=== PATIENT | female | born 1995 | race Hispanic/Latino ===

== ENCOUNTER 2017-09-19 00:04 | Emergency (ER) | payer SELFPAY | END 2017-09-19 01:11 | disposition home or self-care (01) | LOC: ERS 00:04 | DX: B08.5 Enteroviral vesicular pharyngitis (principal); F17.210 Nicotine dependence, cigarettes, uncomplicated | CPT/HCPCS: 87081; 87430; 99283 ==

== ENCOUNTER 2017-12-13 12:55 | Emergency (ER) | payer SELFPAY ==
[2017-12-13 13:44] LABS: #Eosinphils 0.1 thou/uL (0.0-0.7); #Lymphocytes 2.3 thou/uL (1.20-3.40); #Monocytes 0.5 thou/uL (0.11-0.59); #Neutrophils 5.9 thou/uL (1.40-6.50); %Basophils 0.6 % (0.0-1.0); %Lymphocytes 25.8 % (21.0-51.0); %Monocytes 5.7 % (0.0-10.0); %Neutrophils 66.9 % (42.0-75.0); Hemoglobin 11.8 g/dL (12.0-16.0); Mean Corpuscular HGB CONC 32.6 g/dL (32.0-36.0); Mean Corpuscular Hemoglobin 25.2 pg (27.0-31.0); Mean Corpuscular Volume 77.4 fL (78.0-98.0); Mean Platelet Volume 8.4 fL (7.4-10.4); Platelet Count 301 thou/uL (130-400); Red Blood Cell (RBC) Count 4.69 mill/uL (4.20-5.40); White Blood Cell (WBC) Count 8.9 thou/uL (4.8-10.8)
[2017-12-13 14:07] LABS: ALT (SGPT) 18 U/L (8-55); AST (SGOT) 12 U/L (5-34); Albumin 4.5 g/dL (3.5-5.0); Alkaline Phosphatase 74 U/L (40-150); Anion Gap 13 mmol/L (10-20); BUN (Urea Nitrogen) 10 mg/dL (7.0-18.7); Bilirubin, Total 0.3 mg/dL (0.2-1.2); Calc. Creatinine Clearance 0 mL/min (70-130); Calcium 9.7 mg/dL (7.8-10.44); Carbon Dioxide 24 mmol/L (22-29); Chloride 104 mmol/L (98-107); Estimated GFR-MDRD Greater than 90; Glucose 112 mg/dL (70-105); Potassium 3.8 mmol/L (3.5-5.1); Protein, Total 7.5 g/dL (6.0-8.3); Sodium 137 mmol/L (136-145)
[2017-12-13 14:39] LABS: Bilirubin Negative (Negative); Blood, Urine Negative (Negative); Clarity CLEAR (Clear); Glucose, Urine (Dipstick) Negative (Negative); Leukocyte Negative (Negative); Nitrite Negative (Negative); Protein, Urine (Dipstick) Negative (Neg-Trace); Specific Gravity, Urine 1.023 (1.002-1.036); Urobilinogen 0.2 mg/dL (0.2-1.0)
--- NOTE | 2017-12-13 16:11 | ULT ---
PELVIC ULTRASOUND WITH DOPPLER (TRANSABDOMINAL AND TRANSVAGINAL, GRAYSCALE, COLOR FLOW AND SPECTRAL DOPPLER IMAGING): History: Right acute abdominal pain. Positive urine test. FINDINGS: The uterus measures 6.2 x 3.9 x 5.1 cm without mass. The endometrium measures 9 mm in thickness. Ther e is fluid in the endometrial cavity. The right ovary measures 2.2 x 1.9 x 2.3 cm and the left ovary measures 3.8 x 4.6 x 3.5 cm. A 3.8 x 3 .2 x 2.6 cm left ovarian cyst is seen. Flow is demonstrated to both ovaries. No gestational sac is id entified. IMPRESSION: 1. No evidence of intrauterine gestation. 2. 3.8 cm left ovarian cyst. 3. Fluid in the endometrial canal. 4. Correlation with Beta HCG and follow up pelvic ultrasound is recommended. POS: JOSSELINE
== END 2017-12-13 15:42 | disposition home or self-care (01) ==
LOC: ERS 12:55
DX: O20.0 Threatened abortion (principal); O99.331 Smoking (tobacco) complicating pregnancy, first trimester; F17.210 Nicotine dependence, cigarettes, uncomplicated; Z3A.01 Less than 8 weeks gestation of pregnancy
CPT/HCPCS: 36415; 76856; 80053; 81003; 84702; 85025; 86900; 86901

== ENCOUNTER 2018-01-02 20:42 | Emergency (ER) | payer SELFPAY ==
[2018-01-02 21:38] LABS: #Eosinphils 0.2 thou/uL (0.0-0.7); #Lymphocytes 2.7 thou/uL (1.20-3.40); #Monocytes 0.7 thou/uL (0.11-0.59); #Neutrophils 5.8 thou/uL (1.40-6.50); %Basophils 0.4 % (0.0-1.0); %Eosinophils 1.7 % (0.0-10.0); %Lymphocytes 28.6 % (21.0-51.0); %Neutrophils 62.3 % (42.0-75.0); Hemoglobin 11.7 g/dL (12.0-16.0); Mean Corpuscular HGB CONC 34.3 g/dL (32.0-36.0); Mean Corpuscular Hemoglobin 26.5 pg (27.0-31.0); Mean Corpuscular Volume 77.1 fL (78.0-98.0); Mean Platelet Volume 8.4 fL (7.4-10.4); Platelet Count 279 thou/uL (130-400); RBC Distribution Width 13.6 % (11.5-14.5); Red Blood Cell (RBC) Count 4.43 mill/uL (4.20-5.40); White Blood Cell (WBC) Count 9.3 thou/uL (4.8-10.8)
[2018-01-02 21:56] LABS: ALT (SGPT) 24 U/L (8-55); AST (SGOT) 14 U/L (5-34); Albumin 4.5 g/dL (3.5-5.0); Alkaline Phosphatase 80 U/L (40-150); Anion Gap 11 mmol/L (10-20); BUN (Urea Nitrogen) 8 mg/dL (7.0-18.7); Bilirubin, Total 0.3 mg/dL (0.2-1.2); Calc. Creatinine Clearance 0 mL/min (70-130); Calcium 9.6 mg/dL (7.8-10.44); Carbon Dioxide 25 mmol/L (22-29); Chloride 106 mmol/L (98-107); Estimated GFR-MDRD Greater than 90; Globulin 3.5 g/dL (2.4-3.5); Glucose 116 mg/dL (70-105); Potassium 3.8 mmol/L (3.5-5.1); Sodium 138 mmol/L (136-145)
[2018-01-02 22:09] LABS: Bilirubin Small (Negative); Blood, Urine Large (Negative); Clarity CLOUDY (Clear); Glucose, Urine (Dipstick) Negative (Negative); Leukocyte Small (Negative); Nitrite Negative (Negative); Protein, Urine (Dipstick) 100 mg/dL (Neg-Trace); Specific Gravity, Urine 1.033 (1.002-1.036); Urobilinogen 0.2 mg/dL (0.2-1.0)
[2018-01-02 22:13] LABS: Bacteria/HPF None Seen HPF (None Seen); Hyaline Casts/LPF 7-10 HYALINE CAST LPF (0-3 Hyaline); Pathc Cast-AUWi Flag 1.93 (0-2.49); RBC/HPF GREATER THAN 50-TNTC HPF (0-3)
[2018-01-02] MEDS ORDERED: Acetaminophen 500 MG TAB ONE (23:22)
--- NOTE | 2018-01-03 02:11 | CON ---
DATE OF CONSULTATION: 01/03/2018 EVALUATING PHYSICIAN: Ata Tovar MD CHIEF COMPLAINT: Abdominal pain. HISTORY OF PRESENT ILLNESS: Ms. Knox is a 22-year-old , G3, P2 -0-0-2 with a suspected last menstrual period of 11/30/2017 who presents to the ER tonight with a second episode of abdominal pain. She has also had some associated vaginal bleeding. The patient was seen on 12/13/2017, at which time, she had a quantitative BHCG of 118 and an ultrasound that was only remarkable for a 3.8 cm left ovarian cyst. Her uterus was empty at that time. She returns tonight with again diffuse lower abdominal pain. She denies nausea , vomiting, fever, or chills. She continues to have a small amount of persistent spotting. PAST OBSTETRICAL HISTORY: Includes 2 vaginal deliveries at term. PAST MEDICAL HISTORY: Unremarkable. PAST SURGICAL HISTORY: Cholecystectomy. CURRENT MEDICATIONS: None. SOCIAL HISTORY: Denies tobacco, alcohol, or drug use. She denies a history of gonorrhea or chlamydia. FAMILY HISTORY: Denies female pelvic malignancy. REVIEW OF SYSTEMS: She denies nausea, vomiting, fever, or chills. PHYSICAL EXAMINATION: VITAL SIGNS: In the ER now are 124/79 with a pulse of 96. ABDOMEN: Soft and nontender without guarding or rebound. No heavy vaginal bleeding is seen. IMAGING: The ultrasound is reviewed with the ER doctor. Her uterus is once again seen to be empty. There is what appears to be a 3-cm complex mass adjacent to the right ovary, possibly consistent with an ectopic. There is no significant amount of free fluid. There is good flow to both ovaries. LABORATORY DATA: Laboratories tonight show a white count of 9.3, hemoglobin and hematocrit of 11.7 and 34.2, platelet count 279. Chemistry show a sodium of 138, a potassium of 3.8, a BUN of 8, a creatinine of 0.67, total bilirubin of 0.3, and AST and an ALT of 14 and 24 respectively. Her beta hCG tonight has risen to 370.54. ASSESSMENT: 1. Suspected ectopic . 2. No evidence of acute abdomen or hemodynamic instability. PLAN: Options were reviewed with the patient at this time to include surgery as well as medical treatment of ectopic with methotrexate. The risks and benefits of both alternatives were discussed in detail. The plan at this time will be to attempt medical treatment with methotrexate 50 mg/meter squared to be given as a single dose. I have given the dose verbally to the pharmacist. She understands that she is to return on day 4 and on day 7 for a repeat quantitative beta hCG evaluations. She also understands that she is to return should she experience severe lower abdominal pain, dizziness, or signs of bleeding. She understands all of the above, along with her , and wishes to proceed with medical management. CHARLENE
--- NOTE | 2018-01-03 10:28 | ULT ---
PRELIMINARY REPORT/[facility]/EMERGENTY AFTER-HOURS PROCEDURE US , Transvaginal US Duplex Arterial/Venous of the Pelvis, Complete CLINICAL HISTORY: 22 years old, female; Pain; Other: Pelvic pain, vag bleeding; Gestational age or lmp: 6wks; TECHNIQUE: Real-time transvaginal obstetrical ultrasound of the maternal pelvis and a first trimester with image documentation. Transvaginal imaging was used for better evaluation of the fetus and adnexa . Real-time duplex ultrasound scan of the pelvis integrating B-mode two-dimensional vascular structure, Doppler spectral analysis and color flow Doppler imaging. COMPARISON: No relevant prior studies available. FINDINGS: Transvaginal obstetrical ultrasound was performed. Duplex ultrasound scan with color Doppler flow and spectral waveform analysis was also performed for evaluation of pelvic and ovarian blood flow and to rsion. Gestation: There is no intrauterine gestational sac. There is a right paraovarian adnexal heterogeneo us hyperechoic mass measuring up to 2.5 cm, suspicious for ectopic . Uterus/cervix: Thickened endometrium. No myometrial mass. Right ovary: See above right paraovarian mass. Right ovary is otherwise unremarkable. Normal ovarian blood flow. No evidence of torsion. Left ovary: Left ovarian probable corpus luteum. Otherwise unremarkable. Normal ovarian blood flow. N o evidence of torsion. Free fluid: Mild cul-de-sac free fluid containing a focal echogenic area/blood clot. IMPRESSION: No intrauterine gestational sac visualized. Right adnexal mass is suspicious for ectopic ; r ecommend PATIENT BILLER consult. Findings described above. THIS REPORT CONTAINS FINDINGS THAT MAY BE CRITICAL TO PATIENT CARE. The findings were verbally commun icated via telephone conference with Dr Evangelista at 12:29 AM CDT on 01/03/2018. The findings were acknow ledged and understood. Thank you for allowing us to participate in the care of your patient. Dictated and Authenticated by: Yared Rain MD 01/03/2018 12:44 AM Central Time ([place] & [place]) FINAL REPORT EMERGENCY AFTER HOURS PELVIC ULTRASOUND: Date: 01/02/18 HISTORY: Vaginal bleeding. Positive test. FINDINGS: Real-time images of the pelvis were obtained endovaginally. These show the uterus to be 8.3 cm in fady gth. Endometrium is slightly thickened, but there are no signs of any intrauterine . The left ovary shows a dominant follicle measuring 1.2 x 1.5 cm. The right ovary shows several small follicles. Interposed between the right ovary and uterus is a heterogeneous density measuring 1.3 x 2 .4 cm, although I do not see any definite ectopic , this is suspicious. There is some trace free fluid present. DOPPLER EVALUATION WITH SPECTRAL ANALYSIS: Normal flow is shown to the adnexa. IMPRESSION: Right adnexal mass interposed between the uterus and ovary. Given patient's history and the lack of an intrauterine , even though an ectopic is not visualized, this would have to be viewed wit h suspicion for the possibility of an ectopic . Clinical correlation recommended. This report is in agreement with the preliminary report issued by [facility].
== END 2018-01-03 02:30 | disposition home or self-care (01) ==
LOC: ERS 20:42
DX: N93.9 Abnormal uterine and vaginal bleeding, unspecified (principal); Z87.891 Personal history of nicotine dependence
CPT/HCPCS: 36415; 76856; 80053; 81003; 81015; 84702; 85025; 86900; 86901; 87086; 96372; J9250

== ENCOUNTER 2018-01-10 14:52 | Emergency (ER) | payer SELFPAY | END 2018-01-10 16:39 | disposition home or self-care (01) | LOC: ERS 14:52 | DX: Z00.00 Encounter for general adult medical examination without abnormal findings (principal) | CPT/HCPCS: 36415; 84702; 99282 ==

== ENCOUNTER 2018-09-21 09:46 | Outpatient (CLI) | payer OTHER ==
--- NOTE | 2018-09-21 11:01 | ULT ---
Ultrasound obstetrical complete: DATE: 09/21/2018 HISTORY: 23-year-old female, "encounter for supervision of otherwise normal in second trimester. Com plete anatomy, sizes, and dates, and cervical length" FINDINGS: number:[place] lie:Variable Maternal cervix:3 cm. Closed. Placenta:Anterior.. No placenta previa. Amniotic fluid: RAJAT:10 cm. heart rate:147 bpm. The following anatomy is visualized without evidence of anomalies: Head, cerebellum, lateral ventricles, four-chamber heart, stomach, kidneys, cord insertion, bladder, cervical spine, thoracic spine, lumbar spine, sacrum, nose and lips, upper extremities, lower extreme venous, and three-vessel cord. biometry: BPD: 5.0 cm: 21 w 2 d HC: 18.4 cm: 20 w 6 d AC:15.7 cm: 20 w 6 d FL:3.2 cm: 20 w 1 d Average ultrasound age: 20 w 6 Estimated date of delivery: 02/02/2019 Estimated weight: 360 g+ -53 g IMPRESSION: 1) 2nd trimester intrauterine gestation. 2) estimated gestational age of: 20 weeks 6 days 3) lie:Variable 4) no anatomic abnormality identified.
== END 2018-09-21 09:47 | disposition home or self-care (01) ==
LOC: BICULT 09:46
PROVIDERS: ATTEND Family Medicine
DX: Z34.82 Encounter for supervision of other normal pregnancy, second trimester (principal); Z3A.20 20 weeks gestation of pregnancy
CPT/HCPCS: 76805

== ENCOUNTER 2018-10-10 19:53 | Day surgery (SDC) | payer OTHER ==
[2018-10-10 20:37] VITALS: BMI 33.5
[2018-10-10] MEDS ORDERED: Ondansetron PF 4 MG/2 ML Vial ONE (20:59)
[2018-10-10] MEDS ORDERED: Dextrose 5%-Lactated Ringers 1,000 ML IV SCH (21:00)
--- NOTE | 2018-10-10 21:10 | PDOC.EVN ---
Event Note - Event Note Event Note: History and Physical Location: L&D Time: 2114 I have seen and evaluated the patient at bedside DX: N/V at 23 weeks (with sick contacts). Eval in process Full H&P dictated
[2018-10-10] MEDS ORDERED: Acetaminophen 500 MG TAB PO SCH (21:15)
[2018-10-10] MEDS ORDERED: Ondansetron HCl/PF 8 MG in Sodium Chloride 0.9% 50 ML IVPB SCH (21:15)
[2018-10-10 21:36] LABS: #Lymphocytes 0.7 thou/uL (1.20-3.40); #Monocytes 0.6 thou/uL (0.11-0.59); #Neutrophils 8.9 thou/uL (1.40-6.50); %Eosinophils 0.3 % (0.0-10.0); %Monocytes 5.7 % (0.0-10.0); %Neutrophils 87.1 % (42.0-75.0); Mean Corpuscular HGB CONC 32.9 g/dL (32.0-36.0); Mean Corpuscular Hemoglobin 27.6 pg (27.0-31.0); Mean Corpuscular Volume 83.8 fL (78.0-98.0); Mean Platelet Volume 9.6 fL (7.4-10.4); Platelet Count 215 thou/uL (130-400); RBC Distribution Width 12.6 % (11.5-14.5); Red Blood Cell (RBC) Count 4.34 mill/uL (4.20-5.40); White Blood Cell (WBC) Count 10.2 thou/uL (4.8-10.8)
[2018-10-10 21:56] LABS: ALT (SGPT) 25 U/L (8-55); AST (SGOT) 35 U/L (5-34); Albumin 3.9 g/dL (3.5-5.0); Alkaline Phosphatase 91 U/L (40-150); Anion Gap 17 mmol/L (10-20); BUN (Urea Nitrogen) 5 mg/dL (7.0-18.7); Bilirubin, Total 0.6 mg/dL (0.2-1.2); Calc. Creatinine Clearance 227 mL/min (70-130); Calcium 9.5 mg/dL (7.8-10.44); Carbon Dioxide 19 mmol/L (22-29); Chloride 104 mmol/L (98-107); Estimated GFR-MDRD Greater than 90; Globulin 3.1 g/dL (2.4-3.5); Glucose 80 mg/dL (70-105); Potassium 3.7 mmol/L (3.5-5.1); Sodium 136 mmol/L (136-145)
--- NOTE | 2018-10-10 22:04 | PDOC.EVN ---
Event Note - Event Note Event Note: CBC and CMP ok. Awaiting UA. Patient doing well
--- NOTE | 2018-10-10 22:06 | PDOC.EVN ---
Event Note - Event Note Event Note: Patient declines to leave urine sample. She feels better...clinically stable. We will DC to home
--- NOTE | 2018-10-10 22:09 | HP ---
TIME OF EVALUATION: 2255 until 2105 hours. LOCATION: Labor and Delivery in [facility]. This is a patient Dr. Knutson. REASON FOR EVALUATION: Nausea and vomiting (with similar sick contacts) at 23 weeks. HISTORY OF PRESENT ILLNESS: This is a 23-year-old female, 4, para 2 with 2 prior vaginal births at term and 1 ectopic in the past, who now has any EDC of February 02 placing her at 23 weeks and 4 days. She is here for nausea and some bouts of emesis earlier today. She states that she has had some family members sick with the same issue. She denies any blood in her vomitus. No blood in her stool. She has good movement. She denies any leakage of fluid or vaginal bleeding. She states that she may have been dizzy and may have passed out, but denies any abdominal trauma. She has no bruising on her abdomen. She denies any direct abdominal injury. She is not sure, if she got dizzy and sat down on the floor or had a similar episode. This is the first time this has happened. REVIEW OF SYSTEMS: Complete review of systems was checked and is otherwise negative unless specified in the HPI. PAST MEDICAL HISTORY: Otherwise noncontributory. PAST SURGICAL HISTORY: Cholecystectomy in 2014. OB HISTORY: She has had 2 prior vaginal deliveries at term and an ectopic . ALLERGIES: NONE. SOCIAL HISTORY: The patient denies any illicit substances. PHYSICAL EXAMINATION: VITAL SIGNS: Blood pressure is 123/75, pulse is 113. She is afebrile. GENERAL: She is in no acute distress and is not vomiting at this time. She is alert and oriented. ABDOMEN: No abdominal tenderness. Abdomen is soft. There is no uterine rigidity. PELVIC: Exam was deferred, but there is no evidence of gross bleeding or leakage of fluid. heart tones are in the 140s to 150s on Doppler based on her EGA (monitoring not performed). ASSESSMENT: This is a 23-year-old, G4, P2 at 23 weeks and 4 days with nausea and vomiting with sick contacts that have the same, this may be an episode of gastroenteritis. There is no evidence of labor or intraamniotic infection. PLAN: 1. I have ordered a CMP and a CBC. 2. I have ordered D5 LR 1 L for fluid hydration. 3. I have ordered Zofran for nausea. 4. Tylenol p.r.n. 5. I have also ordered a urine for urinalysis. 6. If all her labs are normal, and I find no evidence of blood pressure or temperature abnormalities, we may just hydrate her and send her home with conservative care. 7. There is no evidence of direct abdominal injury, so I do not suspect abruption clinically as she does not appear, by history with her and her family, of having hit her abdomen. Job ID: [id number]
== END 2018-10-10 23:41 | disposition home or self-care (01) ==
LOC: L&D/OP 19:53
PROVIDERS: ATTEND Family Medicine
DX: O99.89 Other specified diseases and conditions complicating pregnancy, childbirth and the puerperium (principal); R11.2 Nausea with vomiting, unspecified; Z3A.23 23 weeks gestation of pregnancy
CPT/HCPCS: 36415; 80053; J2405; J7050

== ENCOUNTER 2019-01-03 00:27 | Day surgery (SDC) | payer OTHER ==
[2019-01-03 01:00] VITALS: BMI 32.4
[2019-01-03 01:12] VITALS: BP 127/64; TEMP 98.6
[2019-01-03] MEDS ORDERED: hydrALAZINE 20 MG/ML VIAL SLOW IVP PRN (02:19)
--- NOTE | 2019-01-03 03:09 | PRG ---
DATE OF SERVICE: 01/03/2019 PRIMARY CLINICAL ASSESSMENT MANAGER: Jose F Knutson MD CHIEF COMPLAINT: Abdominal pains. HISTORY OF PRESENT ILLNESS: The patient is a 23-year-old G3, P2 female with an intrauterine at 35 weeks and 5 days, presenting to Labor and Delivery today with uterine contractions and abdominal cramping. The patient reports that she had intercourse earlier this morning. Also reports that she has been on her feet a lot shopping today. At about 11 o'clock, she began feeling contractions that she had very infrequent about every 2 hours to 3 hours. She also reports that she was having a crampy feeling that would start in the front and go to the back that would improve with rest. She in addition has a pain that is worse with her activity and movement. The patient reports that she had a little bit of spotting earlier in the day that has since resolved. The patient denies any falls. She denies fever. She denies headache, chest pain, shortness of breath, nausea, or vomiting. Denies diarrhea, or constipation. Denies any new rashes, hip problems, knee problems, or muscle weakness. Denies change in her discharge, urinary urgency or frequency. PAST MEDICAL HISTORY: Negative. PAST SURGICAL HISTORY: She has had a gallbladder removal. ALLERGIES: NO KNOWN DRUG ALLERGIES. MEDICATIONS: vitamins. SOCIAL HISTORY: Denies drug, alcohol, or tobacco use. OB LABS: Unavailable at time of dictation. REVIEW OF SYSTEMS: Per HPI. PHYSICAL EXAMINATION: VITAL SIGNS: Blood pressure is 127/64, heart rate of 99, respiratory rate of 20, saturating 98% on room air, temperature 98.6. GENERAL: She appears to be in no acute distress. She is alert, oriented, cooperative, and pleasant to interact with. HEAD: Normocephalic and atraumatic. LUNGS: Clear to auscultation bilaterally. HEART: Has regular rate and rhythm. ABDOMEN: Gravid. She has tenderness to the uterus with deviation to the left and to the right consistent with ligamentous pains. No fundal tenderness. EXTREMITIES: Nontender with minimal edema. EXTERNAL GENITALIA: Vulva is without masses, lesions, or erythema. Cervix is closed with no palpable presenting part through the vaginal wall. heart tracing shows the fetus with a baseline in the 130s with moderate long-term variability, positive 15 x 15 accelerations, no decelerations. Tocometer showing irritability, but no regular contraction pattern. ASSESSMENT AND PLAN: The patient is a 23-year-old female with an intrauterine at 35 weeks and 5 days, having contractions and ligamentous pain, but no evidence of labor. Fetus has a category 1 tracing and reactive NST. The patient has an appointment in the middle of this next week with Dr. Knutson that we encouraged that she keep. She has been given labor precautions. Job ID: [id number]
== END 2019-01-03 01:52 | disposition home or self-care (01) ==
LOC: L&D/OP 00:27
PROVIDERS: ATTEND Family Medicine
DX: O47.03 False labor before 37 completed weeks of gestation, third trimester (principal); O99.89 Other specified diseases and conditions complicating pregnancy, childbirth and the puerperium; R10.9 Unspecified abdominal pain; Z3A.35 35 weeks gestation of pregnancy

== ENCOUNTER 2019-01-15 09:34 | Day surgery (SDC) | payer OTHER ==
[2019-01-15 10:15] VITALS: BMI 33.5
[2019-01-15 10:16] VITALS: BP 119/65; TEMP 98.5
[2019-01-15] MEDS ORDERED: hydrALAZINE 20 MG/ML VIAL SLOW IVP PRN (11:19)
--- NOTE | 2019-01-15 12:49 | PDOC.FPROB ---
FMR OB H&P: HPI - History of Present Illness Chief Complaint: ctx Indentification: 23 y/o @ 37.3 WGA History of Present Illness: Presents with ctx that are every 3-5 minutes and painful since 6am. Denies LOF, vaginal bleeding, vaginal d/c. Endorses movement. Primary Care Physician: Dr. Knutson FMR OB H&P: History - Past Medical History PMH: None - Surgical History Sx History: cholecystectomy - Social History Social History: Denies tobacco, EtOH, or drug use - Family History Family History: Noncontributory FMR OB H&P: Medications - Current Home Medications: Medication Instructions Recorded Confirmed Type Acetaminophen [Tylenol] 325 mg PO PRN PRN 01/03/19 01/03/19 History Allergies/Adverse Reactions: Allergies Allergy/AdvReac Type Severity Reaction Status Date / Time No Known Allergies Allergy Verified 01/03/19 00:57 FMR OB H&P: ROS - Review of Systems General: denies: fever/chills, fatigue Eyes: denies: vision changes, double vision ENT: denies: nasal congestion, rhinorrhea Cardiovascular: denies: chest pain, edema Respiratory: denies: cough, shortness of breath Gastrointestinal: denies: abdominal pain, nausea, vomiting Genitourinary (Female): reports: contractions. denies: dysuria, hematuria Musculoskeletal: denies: pain, stiffness Neurologic: denies: numbness, weakness Endocrine: denies: cold intolerance, heat intolerance Hematologic/Lymphatic: denies: prolonged or excessive bleeding, enlarged lymph nodes Psychological: denies: depression, anxiety FMR OB H&P: Vital Signs - Maternal Vital signs: Vital Signs - First Documented Temp Pulse Resp BP Pulse Ox 98.5 F 88 18 119/65 98 01/15/19 10:09 01/15/19 10:09 01/15/19 10:09 01/15/19 10:09 01/15/19 10:09 - Heart Tones Baseline: 140 Variability: moderate Acceleration: present Deceleration: absent Category: category 1 Kyle contractions every: 3-5 min FMR OB H&P: Physical Exam - Physical Exam General: NAD, awake, alert and oriented HEENT: PERRLA, EOMI, conjunctiva clear, grossly normal vision, grossly normal hearing Neck: supple, FROM Heart: RRR, normal S1/S2, pulses present, no edema General: CTAB, no respiratory distress, good air movement, no rales/rhonchi, no wheezing Abdomen: soft, gravid, non-tender Musculoskeletal: normal gait and station, pulses present Neurological: no clonus, no focal deficit Skin: good tugor, capillary refill <2 seconds Lymphatic: no unusual bruising or bleeding, no purpura Psychiatric: intact recent and remote memory, good judgement and insight - Pelvic Exam SVE: 1.5/50/-2 [facility]MR OB H&P: A/P - Problem List (1) Uterine contractions Current Visit: Yes Status: Acute Code(s): HAF8566 - Assessment and Plan: Patient presents with contractions, but no cervical change in 2 hours. Membranes intact Cephalic presentation Cat I FHT -Will d/c home -Gave labor precautions -f/u with Dr. Knutson this next week in clinic (2) Term Current Visit: Yes Status: Acute Code(s): Z34.90 - ENCNTR FOR SUPRVSN OF NORMAL , UNSP, UNSP TRIMESTER Disposition: D/C home Discussion: Date/Time: 01/15/19 8317 This H&P was discussed with Dr. Mesa who agrees with the above documentation and plan. Signature: Carmenza Leavitt MD, PGY-3
== END 2019-01-15 12:51 | disposition home or self-care (01) ==
LOC: L&D/OP 09:34
PROVIDERS: ATTEND Family Medicine
DX: O47.1 False labor at or after 37 completed weeks of gestation (principal); Z3A.37 37 weeks gestation of pregnancy
CPT/HCPCS: 99283

== ENCOUNTER 2019-01-26 19:30 | Inpatient (IN) | payer MEDICAID, OTHER, SELFPAY ==
[2019-01-26] MEDS ORDERED: Ibuprofen 800 MG TAB PO PRN (21:01)
[2019-01-26] MEDS ORDERED: NS / Oxytocin 40 units/1000ml 1,000 ML IV PRN (21:01)
[2019-01-26] MEDS ORDERED: Promethazine HCl 25 MG/ML VIAL IM PRN (21:01)
[2019-01-26] MEDS ORDERED: Butorphanol Tartrate 1 MG/ML VIAL SLOW IVP PRN (21:01)
[2019-01-26] MEDS ORDERED: Ondansetron PF 4 MG/2 ML Vial IVP PRN (21:01)
[2019-01-26] MEDS ORDERED: Carboprost 250 MCG/ML AMP IM PRN (21:01)
[2019-01-26] MEDS ORDERED: hydrALAZINE 20 MG/ML VIAL SLOW IVP PRN (21:01)
[2019-01-26] MEDS ORDERED: HYDROcodone/Acetaminophen 5/325 mg Tablet PO PRN ×2 (21:01)
[2019-01-26] MEDS ORDERED: Misoprostol 200 MCG TAB PR PRN (21:01)
[2019-01-26] MEDS ORDERED: Lidocaine 1% (PF) 30 ML VIAL SC PRN (21:01)
[2019-01-26] MEDS ORDERED: Methylergonovine 0.2 MG/ML VIAL IM PRN (21:01)
[2019-01-26] MEDS ORDERED: Diphenoxylate HCl/Atropine Tablet PO PRN (21:01)
[2019-01-26] MEDS ORDERED: NS w/ Oxytocin 10 units 500 ML IV SCH ×2 (21:15)
[2019-01-26] MEDS: Lactated Ringer's 1,000 ML IV SCH (21:30)
[2019-01-26] MEDS: Misoprostol 100 MCG TAB PO SCH (21:44)
[2019-01-26 22:01] VITALS: BMI 35.8
[2019-01-26 22:02] LABS: Hemoglobin 9.8 g/dL (12.0-16.0); Mean Corpuscular HGB CONC 33.2 g/dL (32.0-36.0); Mean Corpuscular Hemoglobin 24.1 pg (27.0-31.0); Mean Corpuscular Volume 72.5 fL (78.0-98.0); Mean Platelet Volume 10.2 fL (7.4-10.4); Platelet Count 234 thou/uL (130-400); RBC Distribution Width 15.2 % (11.5-14.5); Red Blood Cell (RBC) Count 4.08 mill/uL (4.20-5.40); White Blood Cell (WBC) Count 10.4 thou/uL (4.8-10.8)
[2019-01-26 22:38] LABS: Syphilis Antibody Nonreactive (Nonreactive); Syphilis Antibody Index 0.05 S/CO (<1.00 Non-Reactive)
[2019-01-26 23:05] LABS: HBSAg Index 0.17 S/CO (0-0.99); Hep B Surf Ag Non-Reactive S/CO (NonReactive)
[2019-01-27] MEDS: Misoprostol 100 MCG TAB PO SCH ×4 (01:55→19:53)
[2019-01-27] MEDS: Lactated Ringer's 1,000 ML IV SCH ×2 (06:09→08:39)
[2019-01-27] MEDS ORDERED: Fentanyl 4 mcg/Bup 0.1% Cadd 100 ML ONE (07:25)
[2019-01-27] MEDS ORDERED: Lidocaine 1.5%/Epinephrine 1:200,000 5 ML AMPUL IJ ONE (07:26)
[2019-01-27] MEDS ORDERED: ePHEDrine/0.9% NaCl/PF SYRINGE 50 mg/10 ml SLOW IVP PRN (08:18)
[2019-01-27] MEDS ORDERED: Lactated Ringer's 500 ML IV PRN (08:18)
[2019-01-27] MEDS ORDERED: Acetaminophen 325 MG TAB PO PRN (08:18)
[2019-01-27] MEDS ORDERED: Promethazine HCl 25 MG/ML VIAL IM PRN ×2 (08:18→13:31)
[2019-01-27] MEDS ORDERED: Ondansetron PF 4 MG/2 ML Vial IVP PRN ×2 (08:18→13:31)
[2019-01-27] MEDS ORDERED: diphenhydrAMINE 50 MG/ML VIAL IVP PRN (08:18)
[2019-01-27] MEDS ORDERED: Naloxone HCl 0.4 mg/ml Vial IVP PRN ×2 (08:18)
[2019-01-27] MEDS ORDERED: Fentanyl 4 mcg/Bupivacaine 0.1% Cassette 100 ML EPIDURAL SCH (08:30)
[2019-01-27] MEDS ORDERED: Communication Order-Pharmacy FS SCH (08:30)
[2019-01-27] MEDS ORDERED: Lidocaine 1% (PF) 30 ML VIAL ONE (12:09)
[2019-01-27] MEDS ORDERED: NS / Oxytocin 40 units/1000ml 1,000 ML ONE (12:09)
[2019-01-27] MEDS ORDERED: Benzocaine-Menthol 82.5 ML CAN TOP PRN (13:31)
[2019-01-27] MEDS ORDERED: NS / Oxytocin 40 units/1000ml 1,000 ML IV SCH (13:31)
[2019-01-27] MEDS ORDERED: diphenhydrAMINE 25 MG CAP PO PRN (13:31)
[2019-01-27] MEDS ORDERED: HYDROcodone/Acetaminophen 5/325 mg Tablet PO PRN ×2 (13:31)
[2019-01-27] MEDS ORDERED: Bisacodyl 10 MG SUPP PR PRN (13:31)
[2019-01-27] MEDS ORDERED: hydrALAZINE 20 MG/ML VIAL SLOW IVP PRN (13:31)
[2019-01-27] MEDS ORDERED: Milk Of Magnesia 30 ML UDCUP PO PRN (13:31)
[2019-01-27] MEDS ORDERED: Adacel (T-DAP) 0.5 ML SYRINGE IM ONE (13:31)
[2019-01-27] MEDS: Ibuprofen 800 MG TAB PO SCH ×2 (17:32→21:36)
[2019-01-27] MEDS: Ferrous Sulfate 325 MG TAB PO SCH (18:15)
[2019-01-27] MEDS: Docusate Calcium (SURFAK) 240 MG CAP PO SCH (21:36)
[2019-01-28] MEDS: Ibuprofen 800 MG TAB PO SCH ×2 (05:40→13:43)
[2019-01-28 05:41] LABS: #Eosinphils 0.1 thou/uL (0.0-0.7); #Lymphocytes 2.6 thou/uL (1.20-3.40); #Monocytes 0.7 thou/uL (0.11-0.59); #Neutrophils 6.4 thou/uL (1.40-6.50); %Basophils 0.4 % (0.0-1.0); %Eosinophils 0.8 % (0.0-10.0); %Lymphocytes 26.5 % (21.0-51.0); %Monocytes 7.2 % (0.0-10.0); %Neutrophils 65.1 % (42.0-75.0); Hemoglobin 8.2 g/dL (12.0-16.0); Mean Corpuscular HGB CONC 33.5 g/dL (32.0-36.0); Mean Corpuscular Hemoglobin 24.7 pg (27.0-31.0); Mean Corpuscular Volume 73.7 fL (78.0-98.0); Mean Platelet Volume 9.9 fL (7.4-10.4); Platelet Count 200 thou/uL (130-400); RBC Distribution Width 15.2 % (11.5-14.5); Red Blood Cell (RBC) Count 3.33 mill/uL (4.20-5.40); White Blood Cell (WBC) Count 9.9 thou/uL (4.8-10.8)
[2019-01-28] MEDS: Ferrous Sulfate 325 MG TAB PO SCH (09:52)
[2019-01-28] MEDS: Docusate Calcium (SURFAK) 240 MG CAP PO SCH (09:52)
[2019-01-28 11:55] VITALS: BP 119/70; TEMP 97.7
== END 2019-01-28 18:43 | disposition home or self-care (01) | DRG 807 ==
LOC: L&D 19:38 → 3SE 01-27 16:23
PROVIDERS: ADMIT Family Medicine; ATTEND Family Medicine
PROC: 10E0XZZ Delivery of Products of Conception, External Approach (ICD-10-PCS; principal; 2019-01-26)
PROC: 0HQ9XZZ Repair Perineum Skin, External Approach (ICD-10-PCS; 2019-01-26)
DX: O99.214 Obesity complicating childbirth (principal); Z37.0 Single live birth; E66.9 Obesity, unspecified; O70.0 First degree perineal laceration during delivery; Z3A.39 39 weeks gestation of pregnancy
CPT/HCPCS: 36415; 85025; 85027; 86780; 86850; 86900; 86901; 87340; 90715; J0595; J2001; J2590; J3490

== ENCOUNTER 2022-02-23 15:31 | Emergency (ER) | payer MEDICAID, SELFPAY | END 2022-02-23 15:49 | disposition home or self-care (01) | LOC: ERS 15:31 | DX: L50.0 Allergic urticaria (principal) | CPT/HCPCS: 99282 ==

== ENCOUNTER 2025-01-13 14:01 | Emergency (ER) | payer SELFPAY ==
[2025-01-13 15:04] LABS: #Basophils 0.06 10x3/uL (0.0-0.2); #Eosinophils 0.08 10x3/uL (0.0-0.7); #Monocytes 0.52 10x3/uL (0.11-0.59); #Neutrophils 11.26 10x3/uL (1.40-6.50); %Basophils 0.4 % (0.0-1.0); %Eosinophils 0.6 % (0.0-10.0); %Lymphocytes 11.2 % (21.0-51.0); %Monocytes 3.9 % (0.0-10.0); %Neutrophils 83.5 % (42.0-75.0); Hematocrit 38.6 % (36.0-47.0); Hemoglobin 11.8 g/dL (12.0-16.0); Mean Corpuscular Hemoglobin 23.6 pg (27.0-31.0); Mean Corpuscular Volume 77.0 fL (78.0-98.0); Platelet Count 418 10x3/uL (130-400); Red Blood Cell (RBC) Count 5.01 mill/uL (4.20-5.40); White Blood Cell (WBC) Count 13.48 10x3/uL (4.8-10.8)
[2025-01-13 15:16] LABS: BHCG - Serum Negative (NEGATIVE); Pregs Control Background? CLEAR/WHITE (CLR/WHITE); Pregs Control Bar Appear? YES (CONTROL BAR)
[2025-01-13 15:18] LABS: ALT (SGPT) 49 U/L (Less than 34); AST (SGOT) 29 U/L (11-34); Albumin 4.1 g/dL (3.1-4.5); Alkaline Phosphatase 81 U/L (40-110); Anion Gap 15 mmol/L (10-20); BUN (Urea Nitrogen) 9 mg/dL (7.0-18.7); Bilirubin, Total 0.2 mg/dL (0.3-1.2); Calc. Creatinine Clearance 0 mL/min (70-130); Calcium 9.9 mg/dL (7.8-10.44); Carbon Dioxide 25 mmol/L (22-29); Chloride 102 mmol/L (98-107); Globulin 4.3 g/dL (2.4-3.5); Glucose 176 mg/dL (70-105); Lipase 26 U/L (8-78); Potassium 3.8 mmol/L (3.5-5.1); Sodium 138 mmol/L (136-145)
[2025-01-13 15:54] LABS: Bacteria/HPF 1+ HPF (None Seen); CAUTI Indications for Culture Pelvic or flank pain; Glucose, Urine (Dipstick) Normal (Negative); Leukocyte 75 Leu/uL (Negative); Protein, Urine (Dipstick) 20 mg/dL (Neg-Trace); Specific Gravity, Urine 1.034 (1.002-1.036)
[2025-01-13 15:56] LABS: Urine Culture Reflex Yes Yes
[2025-01-13] MEDS ORDERED: Aspirin Chewable 81 MG TAB ONE (16:20)
== END 2025-01-13 16:54 | disposition home or self-care (01) ==
LOC: ERS 14:01
DX: R07.89 Other chest pain (principal); F41.9 Anxiety disorder, unspecified
CPT/HCPCS: 71045; 80053; 81001; 83690; 84484; 84703; 85025; 85379; 87086; 93005